=== PATIENT | female | born 2000 | race Caucasian/White ===

== ENCOUNTER 2024-02-01 13:35 | Emergency (ER) | payer OTHER ==
[2024-02-01 15:12] VITALS: BP 128/79; PULSE 74; RESP 20; TEMP 98.2; BMI 28.3
[2024-02-01 18:24] LABS: EPITHELIAL CELLS 0-5 /hpf
== END 2024-02-01 18:34 | disposition home or self-care (01) ==
LOC: FER 13:35
DX: O26.852 Spotting complicating pregnancy, second trimester (principal); Z3A.17 17 weeks gestation of pregnancy
CPT/HCPCS: 76801-TC; 81003; 81015; 81025; 84703; 86850; 86900; 86901; 87086; 99284-25